=== PATIENT | female | born 1975 | race Caucasian/White ===

== ENCOUNTER 2022-10-05 03:32 | Emergency (ER) | payer BC, SELFPAY ==
[2022-10-05 03:38] VITALS: BP 145/84; PULSE 89; RESP 18; TEMP 36.7; O2SAT 99; BMI 34.3
[2022-10-05 03:57] VITALS: BP 132/74; PULSE 89; RESP 18; TEMP 36.7; O2SAT 99
--- NOTE | 2022-10-05 04:09 | ED.GENADULT ---
HPI - General Adult General Chief complaint: Skin/Abscess/Foreign Body Stated complaint: allergic reaction to a bee sting Time Seen by Provider: 10/05/22 03:37 Source: patient Mode of arrival: ambulatory Limitations: no limitations History of Present Illness HPI narrative: 47-year-old female presents the emergency department about 14 hours after bee sting while camping up in the [facility]. She tends to get a bee sting about every year and is known to be allergic. Thankfully, she is satting enough to carry Benadryl and an EpiPen with her. She has only noticed localized symptoms but admits that she started the Benadryl right away after the sting as we would have urged her to do. She has continued to take the Benadryl 2 tablets every 4-6 hours. She is noticing redness and warmth of the arm but no systemic symptoms. There is no itchy throat, no shortness of breath, no swelling of the lips or tongue. In the past, she has received prednisone for this but is experiencing some eye complications and the drill operator has urged her not to use prednisone unless absolutely medically necessary. She has driven back from the [facility] right away after packing up from camping after the sting and arrives here in our local emergency department. Is not applied any topical steroids, is not taking any nondrowsy antihistamines, H2 blockers or other similar medications. She does not have a history of asthma. She denies any other systemic complaints or other bee stings besides the right arm area. Past medical history known for bee sting, no major long-term health complications. Ocular/macular issues as described above. Related Data Home Medications Medication Instructions Recorded Confirmed No Known Home Medications 10/05/22 10/05/22 Allergies Allergy/AdvReac Type Severity Reaction Status Date / Time Sulfa (Sulfonamide Allergy Severe Swelling Verified 10/05/22 03:40 Antibiotics) of Lip/Tongue/Throat bee venom protein (honey bee) Allergy Mild Redness/Swe Verified 10/05/22 03:40 lling codeine AdvReac Mild Gastrointestinal Verified 10/05/22 03:40 Upset [facility] Medical History Cough ?R05.9 - Cough, unspecified (ICD-10) Social History Smoking Status: Never smoker Second hand tobacco smoke exposure: No How often do you have a drink containing alcohol: never How often do you have six or more drinks on one occasion: Never AUDIT-C Alcohol total score: 0 Non-prescribed substance use: denies use Exam Const: Vital Signs, click to edit/add: Vital Signs - 24 hr 10/05/22 03:38 10/05/22 03:57 Temperature 98.0 F 98.0 F Pulse Rate [Right Pulse Oximeter] 89 89 Respiratory Rate 18 18 Blood Pressure [Ri ght Upper Arm] 145/84 H 132/74 Pulse Oximetry 99 99 Oxygen Delivery Me thod Room Air Room Air Common normals: no apparent distress General appearance: cooperative, comfortable and well kempt Other: Articulate, excellent memory. HENMT: Common normals: normocephalic and head/scalp atraumatic Head and scalp: normocephalic and atraumatic Face and sinus: normal facial exam Mouth: oral and palatal mucosa normal Throat: posterior oropharynx normal Other: No swelling of lips, tongue, membranes Eye: Common normals: conjunctivae normal General eye: normal appearance of both eyes Conjunctiva: conjunctiva(e) normal Neck & C-Spine: Common normals: full ROM Resp: Common normals: normal respiratory effort, no use of accessory muscles and clear to auscultation bilaterally Effort & inspection: able to speak in complete sentences Auscultation: clear to auscultation bilaterally Cardio: Common normals: regular rate, regular rhythm, S1 normal heart sound, S2 normal heart sound and no murmurs Rate: regular rate Rhythm: regular rhythm Heart sounds: S1 normal and S2 normal Extremity: Other: Right arm with hive, confluent, measuring about 10 x 10 cm, irregular in shape. Mild swelling. Localized reaction only. Slightly warm and red. No difficulty moving shoulder or elbow which she med demonstrates easily for me. No other affected areas on skin Neuro: Speech: speech normal Motor exam: no movement abnormalities noted Psych: Common normals: thought process normal Appearance: well kempt Activity/motor behavior: appropriate eye contact Mood and affect: euthymic mood Thought process: normal thought process Insight: insight good Judgement: judgment good Skin: Narrative: Other than the affected right upper arm, no other affected areas. Course Course Hospital Course: Currently reaction is localized, not systemic. She does not require prednisone at this time. I do recommend that she has it on hand in case her symptoms worsen and have reviewed this with her. Discussed treatment with nondrowsy antihistamines, topical steroids and classic Benadryl. See plan of care outlined in discharge summary. Alarm symptoms reviewed that would warrant ED presentation. In summary, will receive topical triamcinolone here in the ED, may apply twice daily at home. Will be given famotidine and Claritin here in the ED. Instructed on twice daily Claritin [id number]-ida-allecea for 10 days, oral famotidine once daily for 5 days. In stay meds prescription for prednisone given in case of worsening which would be spread of the rash on to the chest, any signs of swelling of the lips tongue itchy throat. Discussed that she should continue on the Benadryl every 6 hours for the 1st 24 hours and then switch to as needed. Counseled on continuing to carry EpiPen and Benadryl with her, especially when out of the area. She verbalized understanding and agreement of plan of care Vital Signs Vital signs: Initial Vital Signs Temperature 98.0 F 10/05/22 03:38 Temperature Source Temporal Artery Scan 10/05/22 03:38 Pulse Rate 89 10/05/22 03:38 Respiratory Rate 18 10/05/22 03:38 Blood Pressure 145/84 H 10/05/22 03:38 Blood Pressure Mean 104 10/05/22 03:38 Blood Pressure Position Sitting 10/05/22 03:38 Pulse Oximetry 99 10/05/22 03:38 Oxygen Delivery Method Room Air 10/05/22 03:38 Vital Signs Temperature 98.0 F 10/05/22 03:38 Pulse Rate 89 10/05/22 03:38 Respiratory Rate 18 10/05/22 03:38 Blood Pressure 145/84 H 10/05/22 03:38 Pulse Oximetry 99 10/05/22 03:38 Oxygen Delivery Method Room Air 10/05/22 03:38 Temperature 98.0 F 10/05/22 03:57 Pulse Rate 89 10/05/22 03:57 Respiratory Rate 18 10/05/22 03:57 Blood Pressure 132/74 10/05/22 03:57 Pulse Oximetry 99 10/05/22 03:57 Oxygen Delivery Method Room Air 08/09/23 03:57 Discharge Plan Discharge Clinical Impression: Allergic reaction Patient Disposition: Home, Self-Care Condition: Stable Instructions: General Allergic Reaction (ED) Additional Instructions: As we discussed, your showing signs of an allergic reaction but thankfully no signs of anaphylaxis. You did an excellent job of always caring Benadryl and starting treatment immediately. I agree with you that the risk of prednisone outweighs the benefits, unfortunately there really is not an alternative that is not going to cause similar ocular complications for you. Thankfully, I do not think that we necessarily need to use the steroids right now but I would like for you to have them on hand. I have given you a prescription to fill from the vending machine in the lobby to take and have with you. Honestly, I tend to give this to everyone with allergic reactions so that they have access to this when needed. For the 1st 24 hours after an insect bite, it is important to take your Benadryl every 6 hours. You can decrease to 1 tablet at a time now and continue this through today. I recommend that you also add in nondrowsy antihistamines. I like Claritin 10 mg twice daily for the next 10 days and famotidine which is so [id number] as Pepcid in the stomach I will 20 mg once daily for the next 5 days minimum. You may then add back in the Benadryl as needed if the rash is worsening or spreading or for increased itch. As we discussed, increased heat, activity and movement of the arm will increase blood flow and also therefore worsen the rash temporarily. It is safe to use topical steroids and I have started you on some triamcinolone ointment. You may use this up to twice daily to help with itch and irritation. Keep the tube in you may reason again in the future. It is about 100 times more potent than [id number]-[id number] hydrocortisone ointment. If you notice spread of the hives on to the head and neck, swelling of the lips, throat or tongue and or sensation of itchy throat, shortness of breath or other worrisome findings, take more Benadryl and start the prednisone. If things are not markedly improved within a few minutes, come into the emergency department. Activity Level: No Restrictions Discharge Diet: Regular Prescriptions: No Action No Known Home Medications Follow Up/Referrals: Angelia Rodriguez MD [Primary Care Provider] - Stand Alone Forms: Morning Tec Info Instructions
[2022-10-05 04:15] VITALS: BP 132/74; PULSE 89; RESP 18; TEMP 36.7
[2022-10-05] MEDS: FAMOTIDINE 20 MG TABLET PO (04:15)
[2022-10-05] MEDS: TRIAMCINOLONE ACETONIDE OINTMENT 0.1 % 1 APPLIC TOPICAL (04:15)
[2022-10-05] MEDS: LORATADINE 10 MG TABLET PO (04:15)
== END 2022-10-05 04:15 | disposition home or self-care (01) ==
LOC: ED 04:20
PROVIDERS: Emergency Provider Family Medicine; PCP Family Medicine
DX: S40.862A Insect bite (nonvenomous) of left upper arm, initial encounter (principal); T63.441A Toxic effect of venom of bees, accidental (unintentional), initial encounter
CPT/HCPCS: 99283; A9270

== ENCOUNTER 2023-06-16 08:05 | Outpatient (CLI) | payer OTHER, SELFPAY ==
--- NOTE | 2023-06-16 08:15 | MR_ITS ---
[address] [address] Phone:?[phone] Fax:?[phone] Referring Physician Information: Tolu Cruz M.D. [address] [place] [id number] Phone:?[phone] Fax:?[phone] Patient:Chloé Hamilton D.O.B:?1975 Sex:?Female Phone:?[phone] [facility] MRN:?[id number] Exam Date:?06/16/2023 EXAM: MRI of the RIGHT SHOULDER, without contrast CLINICAL: Female, 48 years old, with right shoulder pain. INDICATION: Evaluate for osteoarthritis and acromioclavicular joint osteoarthritis versus other internal derangement joint etiology. PRIOR SURGERY: None reported. PLAIN FILMS: 05/08/2023 radiographic series of the right shoulder. COMPARISONS: No prior MRIs available. TECHNICAL: Using a 1.5T MR scanner and a localizing shoulder surface coil: 3.0 mm?coronal obliques: PD, T2, STIR 3.0 mm?sagittal obliques: PD, T2 3.0 mm?axials: PD, T2 SEDATION: None. CONTRAST: None. IMPRESSION: 1. Mild abnormal-appearing subacromial bursal edema/bursitis. 2. Mild narrowing of acromiohumeral distance. 3. No rotator cuff tear or mirta tendinopathy. 4. Mild glenohumeral chondral thinning/degenerative change. 5. 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 Evaluate for any associated symptoms referable to the AC joint. FINDINGS: Glenohumeral joint: Effusion/cyst: Physiologic glenohumeral joint effusion. No paralabral ganglion cyst. Articular cartilage: Humeral head: No convincing osteochondral abnormalities. Glenoid: Expected chondral thinning of the central to posterior glenoid, without subjacent marrow edema. Loose bodies: No demonstrable loose bodies. Inferior glenohumeral ligament/axillary recess: The axillary recess is normal in thickness and signal. No evidence of adhesive capsulitis or capsuloligamentous injury. Labrum: There does appear more deformity of the anterior labrum then normally expected which could perhaps represent anterior labrum tear and yet this morphology without contrast arthrography difficult to exclude the possibility of labrum tear mimicked by high origin of anterior band of inferior glenohumeral ligament anatomic variant. However there does appears some attenuation of the inferior labrum. The posterior and superior labrum appear intact. Bones: Proximal humerus: No fracture or marrow edema/pathology. No humeral Hill-Sachs or reverse Hill-Sachs lesion/impaction or contusion. Glenoid: No fracture or marrow edema/pathology. No osseous Bankart lesion. Coracoacromial arch: Acromion morphology: Type I acromion without subacromial spur/enthesophyte. No os acromiale. Acromiohumeral space: Mildly narrowed at a minimum of 4 mm. Coracohumeral space: Widely patent. Acromioclavicular joint: Joint: Ongoing reactive changes of mild towards moderate acromioclavicular joint osteoarthritis is accompanied by small subchondral cyst and marrow edema distal clavicular facet as well as small amount of joint fluid (coronal images 11-7; axial images 6-8). Ligaments: Coracoclavicular ligaments are intact. Bursae: Subacromial-subdeltoid: Mild abnormal-appearing subacromial bursal edema/bursitis (coronal STIR series 4, images 17-9). Subcoracoid: No convincing subcoracoid bursal thickening/bursitis. Rotator cuff and muscles/tendons: Supraspinatus: No tendinopathy, tear or atrophy. Infraspinatus: No tendinopathy, tear or atrophy. Teres minor: No tendinopathy, tear or atrophy. Subscapularis: No tendinopathy, tear or atrophy. Deltoid: No strain or atrophy. Biceps tendon, long head: Perhaps mild tendinosis of the intra-articular segment of the long head of biceps tendon although without convincing more margin of the, tear or displacement. Axilla: No axillary masses or abnormally enlarged lymphadenopathy. [facility] Electronically signed on 06/17/2023 3:11:00 PM by Kentrell Galicia M.D.
== END 2023-06-16 08:06 | disposition home or self-care (01) ==
LOC: MRI 08:06
PROVIDERS: PCP Family Medicine; Visit Provider Orthopaedic Surgery
DX: M25.511 Pain in right shoulder (principal); M75.51 Bursitis of right shoulder; M19.011 Primary osteoarthritis, right shoulder
CPT/HCPCS: 73221

== ENCOUNTER 2023-07-06 06:21 | Day surgery (SDC) | payer OTHER, SELFPAY ==
[2023-07-06] VITALS (19 sets, daily range): BP systolic 82–178; BP diastolic 43–110; PULSE 44–84; RESP 14–20; TEMP 36.2–36.7; O2SAT 91–100; BMI 34.5
[2023-07-06 06:50] LABS: Ur HCG Qualitative* Negative (Negative)
[2023-07-06] MEDS: ACETAMINOPHEN 500 MG TABLET 1000 MG PO (07:00)
[2023-07-06] MEDS: OXYCODONE (CR) 10 MG TAB.ER.12H PO (07:00)
[2023-07-06] MEDS: CELECOXIB 200 MG CAPSULE PO (07:00)
[2023-07-06] MEDS: LACTATED RINGERS 1000 ML 1,000 ML 100 ML IV ×2 (07:05→07:52)
[2023-07-06] MEDS: SODIUM CHLORIDE 0.9 % (FLUSH) 10 ML SYRINGE IVF (07:05)
[2023-07-06] MEDS: MIDAZOLAM HCL 1 MG/ML inj IVP (07:13)
[2023-07-06] MEDS: fentaNYL 100 MCG/2 ML inj IVP (07:13)
[2023-07-06] MEDS: SCOPOLAMINE 1 MG/3 DAY PATCH 1 PATCH TRANSDERMA (07:20)
--- NOTE | 2023-07-06 07:21 | SUR.PREOP ---
TIME?OUT:?711 PT/RN/MDA?VERIFICATION?OF?SURGICAL?SITE Right Shoulder,?PROCEDURE Nerve Block,?AND?CONSENT OBTAINED?PRIOR?TO?INVASIVE?PROCEDURE.
[2023-07-06] MEDS: CEFAZOLIN 2 GM INJ IVP (07:52)
--- NOTE | 2023-07-06 08:52 | PM.ORPRC ---
Procedure Note Date of procedure: 07/06/23 Procedure: PREOPERATIVE DIAGNOSIS: Right shoulder subacromial/subdeltoid bursitis, AC joint arthrosis POSTOPERATIVE DIAGNOSIS: Right shoulder subacromial/subdeltoid bursitis, AC joint arthrosis NAME OF OPERATION: Right shoulder arthroscopic subacromial decompression, distal clavicle excision SURGEON: Tolu Cruz MD CABLE RESPOOLER: Suad Andrews PA-C ANESTHESIA: Supraclavicular block plus general endotracheal ESTIMATED BLOOD LOSS: 5 mL COMPLICATIONS: None SPECIMENS: None DRAINS: None PREOPERATIVE ANTIBIOTICS: Ancef 2 grams INDICATIONS: The patient is a 48-year-old with a history of right shoulder pain secondary to the above diagnoses. Despite appropriate non operative management, they continue to have symptoms. Operative intervention was recommended. The risks, benefits and expected outcomes were discussed in detail. These included but were not limited to: Infection, bleeding, injury to blood vessel or nerve, venous thromboembolism. All questions were answered to their satisfaction. PROCEDURE: A supraclavicular block was placed by Anesthesia. General anesthesia was administered. The patient was placed in the high beach chair position. The right shoulder was prepped and draped in the usual sterile fashion. The glenohumeral joint was infiltrated with 20 mL of normal saline with epinephrine. The posterior portal was established, the arthroscope was introduced. The anterior portal was established, Diagnostic arthroscopy was performed with findings as follows: The biceps and biceps anchor are intact. The anterior, posterior and superior labrum have a minimal amount of age appropriate degenerative fraying. Articular surfaces on the humeral head and glenoid are normal. There are no loose bodies. The rotator cuff is intact. The arthroscope was placed in the subacromial space, the lateral portal was established. The [employer] [place] was used to dissect the acromion free. The CA ligament was recessed off the anterior acromion, the AC joint was exposed. The acromioplasty was performed with the bur in the posterior portal. The bur was then placed in the lateral portal and the lateral and anterior aspect of the acromion were resected. The undersurface of the distal clavicle was resected through the lateral portal. Finally, the bur was placed in the anterior portal and the remainder of the distal clavicle was resected for a total of 10 mm. An accessory anterolateral portal was placed. The subacromial/subdeltoid bursa was aggressively debrided. The bursal surface of the rotator cuff is intact. Arthroscopic instruments were removed. Skin was closed with a 3-0 Monocryl in a subcuticular fashion. A dry dressing and sling were applied. Sponge and needle counts were correct x2. The patient tolerated the procedure well. There were no apparent complications. They were carefully transferred to the hospital bed and taken to the postanesthesia care unit in satisfactory condition. PLAN: The patient will be discharged to home. Active range of motion of the shoulder will be allowed as tolerates. They can work on active range of motion of the elbow, wrist and fingers. They will follow up in the office next week for a wound check and an AP and transscapular Y-view of the shoulder prior to being seen.
--- NOTE | 2023-07-06 08:56 | W.ANESCHARGE ---
Anesthesia Charges Start Date/Time Anesthesia Start Date: 07/06/23 Anesthesia Start Time: 07:40 Stop Date/Time Anesthesia Stop Date: 07/06/23 Anesthesia Stop Time: 08:54
[2023-07-06] MEDS: HYDROmorphone 0.5 mg/0.5 ml inj IVP (09:23)
--- NOTE | 2023-07-06 09:47 | W.PM.NB ---
Nerve Block Nerve Block Time Seen by Provider: 07:17 Date Seen: 07/06/23 Type of block requested by surgeon for post-operative analgesia: supraclavicular Side: right Time out performed: Yes Verification of patient name: Yes Verification of date of : Yes Site marking: site marked Name of person performing procedure: Shen Continuous monitoring Was continuous monitoring of O2 sat, B/P, electronic commerce specialist, recorded every 15 minutes?: Yes Procedure Checklist: sterile prep, needles and gloves Ultrasound guided. Images saved: Yes Medications given in 5ml increments after negative aspiration: Ropivicaine %: 0.5 mL: 20 Needle gauge: 22 Decadron (mg): 10 Precedex (mcg): 25 Patient tolerated procedure well: Yes Block Charges Block Charge (with Pro Fee): Brachial Plexus Use of Ultrasound Machine for Block: Yes- US Guidance/pain block
--- NOTE | 2023-07-06 09:47 | W.ANESCHARGE ---
Anesthesia Charges Start Date/Time Anesthesia Start Date: 07/06/23 Anesthesia Start Time: 07:40 Stop Date/Time Anesthesia Stop Date: 07/06/23 Anesthesia Stop Time: 08:54
[2023-07-06] MEDS: OXYCODONE 5 MG TABLET PO (09:58)
[2023-07-06] MEDS: hydrOXYzine pamoate 25 MG CAPSULE PO (10:02)
== END 2023-07-06 11:25 | disposition home or self-care (01) ==
LOC: OR 06:23
PROVIDERS: Anesthesiology; PCP Family Medicine; Visit Provider Orthopaedic Surgery
PROC: (CPT 29805; principal; 2023-07-06 07:30)
DX: M75.51 Bursitis of right shoulder (principal); M19.011 Primary osteoarthritis, right shoulder; G89.18 Other acute postprocedural pain
CPT/HCPCS: 29826; 29824; 01630; 64415; 76942; 81025; A9270; J0330; J0690; J1100; J1170; J1630; J2250; J2405; J2704; J2710; J2795; J3010; J7120

== ENCOUNTER 2023-08-22 08:00 | Outpatient (RCR) | payer OTHER, SELFPAY | END 2023-12-20 23:59 | disposition home or self-care (01) | PROVIDERS: PCP Family Medicine; Visit Provider Physician Assistant | DX: Z98.890 Other specified postprocedural states (principal); Z74.09 Other reduced mobility; R53.1 Weakness; Z51.89 Encounter for other specified aftercare | CPT/HCPCS: 97110; 97140; 97162 ==

== ENCOUNTER 2024-07-14 23:02 | Emergency (ER) | payer OTHER, SELFPAY ==
[2024-07-14 23:07] VITALS: BP 154/102; PULSE 80; RESP 16; TEMP 36.6; O2SAT 98; BMI 35.6
--- NOTE | 2024-07-14 23:17 | ED_ITS ---
HPI - General Adult General Date Seen: 07/14/24 <Pierre Arevalo MD - Last Filed: 07/16/24 07:55> Chief complaint: Abdominal Pain <Pierre Arevalo MD - Last Filed: 07/16/24 07:55> Stated complaint: diverticulitis flare up <Pierre Arevalo MD - Last Filed: 07/16/24 07:55> Time Seen by Provider: 07/14/24 23:17 <Pierre Arevalo MD - Last Filed: 07/16/24 07:55> History of Present Illness HPI narrative: 49-year-old female with a history of AC joint arthritis, shoulder bursitis who presents to the ER tonight for evaluation of abdominal pain in her mid lower abdomen. Also nausea. No vomiting. Symptoms started 2 days ago on Monday. Pain has been located mostly in her lower abdomen in the central region and left lower quadrant. Initially the pain was coming and going in sharp waves and she noted that it seemed to be related to bad flares of pain before she would have bowel movements. She had a couple of normal bowel movements yesterday and not really having any diarrhea or bloody or mucousy stool. Today the pain is been a little bit more low-grade and more persistent throughout the day. She also had some chills and felt cold and shivery this afternoon but no objective fever. She has been nauseous this evening but not vomiting. She felt quite nauseous at home now she is here in the ER the nausea is mild. Urination has been normal. She has had previous oophorectomies. She recalls that she had a bout of diverticulitis diagnosed on labs and CT 5 years ago in 2004. She did not require surgery for that bout but she did have a fairly prolonged illness lasting several weeks with pain and nausea. She suspects that she has diverticulitis again based on the similarity of her current symptoms to that episode. After that bout of diverticulitis she did have bilateral oophorectomies because of ovarian masses that turned out not to be malignant. <Pierre Arevalo MD - Last Filed: 07/16/24 07:55> Related Data Home medications: Previous Rx's ?Medication ?Instructions ?Recorded epinephrine 0.3 mg/0.3 mL 0.3 ml IM ONCE #2 ea 4 injection, auto-injector <Pierre Arevalo MD - Last Filed: 07/16/24 07:55> Allergies/adverse reactions: Allergies Allergy/AdvReac Type Severity Reaction Status Date / Time Sulfa (Sulfonamide Allergy Severe Swelling Verified 07/14/24 23:06 Antibiotics) of Lip/Tongue/Throat bee venom protein (honey bee) Allergy Mild Redness/Swe Verified 07/14/24 23:06 lling codeine AdvReac Mild Gastrointestinal Verified 07/14/24 23:06 Upset <Pierre Arevalo MD - Last Filed: 07/16/24 07:55> [facility] Medical History: Medical History (Updated 07/15/24 @ 00:26 by Toby Hutchinson, ) Teratoma of right ovary ?D27.0 - Benign neoplasm of right ovary (ICD-10) Obesity ?E66.9 - Obesity, unspecified (ICD-10) Nausea ?R11.0 - Nausea (ICD-10) Mild traumatic brain injury ?S06.9XAA - Unspecified intracranial injury with loss of consciousness status unknown, initial encounter (ICD-10) Class 1 obesity ?E66.9 - Obesity, unspecified (ICD-10) Allergic reaction to insect bite ?Z91.038 - Other insect allergy status (ICD-10) Diverticulitis ?K57.92 - Diverticulitis of intestine, part unspecified, without perforation or abscess without bleeding (ICD-10) Left ACL tear (~1994) ?S83.512A - Sprain of anterior cruciate ligament of left knee, initial encounter (ICD-10) Cough ?R05.9 - Cough, unspecified (ICD-10) <Pierre Arevalo MD - Last Filed: 07/16/24 07:55> Surgical History: Surgical History (Reviewed 08/21/23 @ 08:55 by Shanice Joshi ~ [facility], [facility]) History of arthroscopy of right shoulder (07/06/23) ?Z98.890 - Other specified postprocedural states (ICD-10) Hx of left knee surgery (1993) ?Z98.890 - Other specified postprocedural states (ICD-10) H/O unilateral oophorectomy (2019) ?Z90.721 - Acquired absence of ovaries, unilateral (ICD-10) Hx of LASIK (08/01/04) ?Z98.890 - Other specified postprocedural states (ICD-10) <Pierre Arevalo MD - Last Filed: 07/16/24 07:55> Social History: Social History (Reviewed 08/21/23 @ 08:55 by Shanice Joshi ~ [facility], [facility]) Narrative: exercises daily- walks 4M, weigth lifting , stay at home mom, 2 kids nonsmoker rarely consumes alcohol What is your current living situation?: I presently have a place to live Problems where you live: no known problems In the past 12 months, utilities in danger of being shut off: no In past 12 months, lack of transportation kept you from medical appts, meetings, work, or getting things needed for daily living: no In the past 12 mos, have been you worried that your food would run out before you had money to buy more?: never true In the past 12 mos, the food you bought just didn't last and you didn't have money to buy more?: never true Smoking Status: Never smoker Second hand tobacco smoke exposure: No How often do you have a drink containing alcohol: never How often do you have six or more drinks on one occasion: Never AUDIT-C Alcohol total score: 0 Non-prescribed substance use: denies use Caffeine: No How often does anyone, including family, friends and others, physically hurt you : never How often does anyone, including family, friends and others, insult or talk down to you: never How often does anyone, including family, friends and others, threaten you with harm: never How often does anyone, including family, friends and others, scream or curse at you: never Are you using contraception or practicing any form of control: No <Pierre Arevalo MD - Last Filed: 07/16/24 07:55> Exam Narrative: Exam Narrative: Constitutional: Appears well-developed and well-nourished. Alert. Conversant. Non toxic. HENT: Head: Atraumatic. Nose: Nose normal. Mouth/Throat: Oral mucosa is clear and moist. no trismus. Pharynx normal. Eyes: Conjunctivae normal. EOM normal. Pupils equal, round, and reactive to light. No scleral icterus. Neck: Normal range of motion. Neck supple. No tracheal deviation present. Cardiovascular: Normal rate, regular rhythm. No gallop. No friction rub. No murmur heard. Symmetric radial artery pulses Pulmonary/Chest: Effort normal. No stridor. No respiratory distress. No wheezes. No rales. No rhonchi . No tenderness. Abdominal: Soft. Bowel sounds normal. No distension. No mass. Left lower quadrant and left mid abdominal tenderness. No rebound. No guarding. No CVA tenderness. Musculoskeletal: RUE: Normal range of motion. No tenderness. No deformity LUE: Normal range of motion. No tenderness. No deformity RLE: Normal range of motion. No edema. No tenderness. No deformity LLE: Normal range of motion. No edema. No tenderness. No deformity Neurological: Alert and oriented to person, place, and time. Normal strength. CN II-VII intact. No sensory deficit. GCS eye subscore is 4. GCS verbal subscore is 5. GCS motor subscore is 6. Normal coordination Skin: Skin is warm and dry. No rash noted. No pallor. Normal capillary refill. Psychiatric: Normal mood. Normal affect. <Pierre Arevalo MD - Last Filed: 07/16/24 07:55> Const: Vital Signs, click to edit/add: Vital Signs - 24 hr 07/14/24 23:07 Temperature 97.8 F Pulse Rate [Pulse Oximeter] 80 Respiratory Rate 16 Blood Pressure [Ri ght Upper Arm] 154/102 H Pulse Oximetry 98 Oxygen Delivery Me thod Room Air <Pierre Arevalo MD - Last Filed: 07/16/24 07:55> Vital Signs, click to edit/add: Vital Signs - 24 hr 07/14/24 23:07 Temperature 97.8 F Pulse Rate [Pulse Oximeter] 80 Respiratory Rate 16 Blood Pressure [Ri ght Upper Arm] 154/102 H Pulse Oximetry 98 Oxygen Delivery Me thod Room Air <Toby Hutchinson DO - Last Filed: 07/15/24 00:26> Course Vital Signs Vital signs: Initial Vital Signs Temperature 97.8 F 07/14/24 23:07 Temperature Source Temporal Artery Scan 07/14/24 23:07 Pulse Rate 80 07/14/24 23:07 Respiratory Rate 16 07/14/24 23:07 Blood Pressure 154/102 H 07/14/24 23:07 Blood Pressure Mean 119 H 07/14/24 23:07 Pulse Oximetry 98 07/14/24 23:07 Oxygen Delivery Method Room Air 07/14/24 23:07 Vital Signs Temperature 97.8 F 07/14/24 23:07 Pulse Rate 80 07/14/24 23:07 Respiratory Rate 16 07/14/24 23:07 Blood Pressure 154/102 H 07/14/24 23:07 Pulse Oximetry 98 07/14/24 23:07 Oxygen Delivery Method Room Air 07/14/24 23:07 Temperature 97.8 F 07/14/24 23:07 Pulse Rate 80 07/14/24 23:07 Respiratory Rate 16 07/14/24 23:07 Blood Pressure 154/102 H 07/14/24 23:07 Pulse Oximetry 98 07/14/24 23:07 Oxygen Delivery Method Room Air 07/14/24 23:07 <Pierre Arevalo MD - Last Filed: 07/16/24 07:55> Initial Vital Signs Temperature 97.8 F 07/14/24 23:07 Temperature Source Temporal Artery Scan 07/14/24 23:07 Pulse Rate 80 07/14/24 23:07 Respiratory Rate 16 07/14/24 23:07 Blood Pressure 154/102 H 07/14/24 23:07 Blood Pressure Mean 119 H 07/14/24 23:07 Pulse Oximetry 98 07/14/24 23:07 Oxygen Delivery Method Room Air 07/14/24 23:07 Vital Signs Temperature 97.8 F 07/14/24 23:07 Pulse Rate 80 07/14/24 23:07 Respiratory Rate 16 07/14/24 23:07 Blood Pressure 154/102 H 07/14/24 23:07 Pulse Oximetry 98 07/14/24 23:07 Oxygen Delivery Method Room Air 07/14/24 23:07 Temperature 97.8 F 07/14/24 23:07 Pulse Rate 80 07/14/24 23:07 Respiratory Rate 16 07/14/24 23:07 Blood Pressure 154/102 H 07/14/24 23:07 Pulse Oximetry 98 07/14/24 23:07 Oxygen Delivery Method Room Air 07/14/24 23:07 <Toby Hutchinson DO - Last Filed: 07/15/24 00:26> Medical Decision Making MDM Narrative Medical decision making narrative: This is a very pleasant 49-year-old female with a past history of diverticulitis 5 years ago and also bilateral oophorectomy done about 5 years ago. She presents to the ER today with his 2 day history of left-sided abdominal pain getting worse over time and also developing nausea and chills today. Differential here includes recurrent diverticulitis as well as complication of diverticulitis such as perforation, abscess. Differential would also include other causes of left-sided of all of pain such as UTI, pyelonephritis, colitis, bowel obstruction from adhesions from previous surgeries. Less likely would be ischemia, appendicitis. She is not having any upper abdominal pain to raise concern for cholecystitis or pancreatitis. She is hemodynamically stable and neurologically intact upon presentation. She politely declines offered meds for pain and nausea. I have ordered labs i ncluding blood tests, urinalysis, as well as imaging workup with CT abdomen pelvis with contrast. Discussed with my oncoming partner, Dr. Hutchinson at midnight on 07/14. He will follow up on all the outstanding test results. I anticipate that the CT scan will likely show acute uncomplicated diverticulitis. If so, I would opt to treat this patient with a course of oral antibiotics. Although she is young and healthy and current recommendations would argue against treatment antibiotics, given the patient's very complicated course during her 1st bout of diverticulitis, I think early antibiotics may be beneficial for her this time. Clinical impression at the time of this dictation 1. Abdominal pain 2. Nausea <Pierre Arevalo MD - Last Filed: 07/16/24 07:55> Patient was signed out to me pending CT scan results. Returned showing some mild diverticulitis. re-evaluation the patient shows no concerning abnormalities. She is feeling well at this time. Based on report previous provider I will provide the patient with Augmentin prescribed be instymeds. She is agreeable to this plan. She will be discharged. <Toby Hutchinson DO - Last Filed: 07/15/24 00:26> Lab Data Labs: Lab Results 07/14/24 07/14/24 Range/Units 23:41 23:45 WBC 6.27 (4.50-11.00) K/uL RBC 4.58 (4.00-5.20) m/uL Hgb 13.2 (12.0-16.0) gm/dL Hct 40.0 (33.0-51.0) % MCV 87 (80-100) fL MCH 29 (26-34) pg MCHC 33 (32-36) gm/dL RDW Coeff of [place] 12.5 (11.5-15.5) % Plt Count 224 (140-440) K/uL Neut % (Auto) 58.1 (42.0-72.0) % Lymph % (Auto) 29.8 (20-44) % [place] % (Auto) 9.4 (0.0-11.0) % Eos % (Auto) 1.3 (0.0-7.0) % Baso % (Auto) 0.3 (0.0-3.0) % Neut # (Auto) 3.64 (1.7-7.0) K/uL Lymph # (Auto) 1.87 (0.90-2.90) K/uL [place] # (Auto) 0.60 (0.00-0.90) K/UL Eos # (Auto) 0.08 (0.00-0.50) K/uL Baso # (Auto) 0.02 (0.00-0.30) K/uL Abs Immat Gran (auto) 0.07 (0.00-0.30) K/uL Imm/Tot Granulo (auto) 1.1 % Sodium 136 (135-149) mmol/L Potassium 3.7 (3.6-5.1) mmol/L Chloride 104 (96-114) mmol/L Carbon Dioxide 24 (20-32) mmol/L Anion Gap 8 (7-15) mEq/L BUN 12 (5-24) mg/dL Creatinine 0.8 (0.5-1.5) mg/dL Estimated Creat Clear 78.23 Estimated GFR 91 ml/min Glucose 94 (60-115) mg/dL Lactate 1.8 (0.5-1.9) mmol/L Calcium 8.9 (8.4-10.6) mg/dL Urine Color Yellow (Yellow) Urine Appearance Clear (Clear) Urine pH 5.0 (5.0-8.5) Ur Specific [place] >= 1.030 (1.000-1.030) Urine Protein 1+ A (Negative) Urine Glucose (UA) Negative (Negative) Urine Ketones 1+ A (Negative) Urine Blood 3+ A (Negative) Urine Nitrite Negative (Negative) Urine Bilirubin 1+ A (Negative) Urine Urobilinogen 0.2 (0.2-1.0) Ur Leukocyte Esterase Negative (Negative) Urine RBC 5-10 A (0-2) Urine WBC 0-2 (0-5) Ur Squamous Epith Cells None (None-Few) Urine Bacteria None (None) <Pierre Arevalo MD - Last Filed: 07/16/24 07:55> Lab Results 07/14/24 07/14/24 Range/Units 23:41 23:45 WBC 6.27 (4.50-11.00) K/uL RBC 4.58 (4.00-5.20) m/uL Hgb 13.2 (12.0-16.0) gm/dL Hct 40.0 (33.0-51.0) % MCV 87 (80-100) fL MCH 29 (26-34) pg MCHC 33 (32-36) gm/dL RDW Coeff of [place] 12.5 (11.5-15.5) % Plt Count 224 (140-440) K/uL Neut % (Auto) 58.1 (42.0-72.0) % Lymph % (Auto) 29.8 (20-44) % [place] % (Auto) 9.4 (0.0-11.0) % Eos % (Auto) 1.3 (0.0-7.0) % Baso % (Auto) 0.3 (0.0-3.0) % Neut # (Auto) 3.64 (1.7-7.0) K/uL Lymph # (Auto) 1.87 (0.90-2.90) K/uL [place] # (Auto) 0.60 (0.00-0.90) K/UL Eos # (Auto) 0.08 (0.00-0.50) K/uL Baso # (Auto) 0.02 (0.00-0.30) K/uL Abs Immat Gran (auto) 0.07 (0.00-0.30) K/uL Imm/Tot Granulo (auto) 1.1 % Sodium 136 (135-149) mmol/L Potassium 3.7 (3.6-5.1) mmol/L Chloride 104 (96-114) mmol/L Carbon Dioxide 24 (20-32) mmol/L Anion Gap 8 (7-15) mEq/L BUN 12 (5-24) mg/dL Creatinine 0.8 (0.5-1.5) mg/dL Estimated Creat Clear 78.23 Estimated GFR 91 ml/min Glucose 94 (60-115) mg/dL Lactate 1.8 (0.5-1.9) mmol/L Calcium 8.9 (8.4-10.6) mg/dL Urine Color Yellow (Yellow) Urine Appearance Clear (Clear) Urine pH 5.0 (5.0-8.5) Ur Specific [place] >= 1.030 (1.000-1.030) Urine Protein 1+ A (Negative) Urine Glucose (UA) Negative (Negative) Urine Ketones 1+ A (Negative) Urine Blood 3+ A (Negative) Urine Nitrite Negative (Negative) Urine Bilirubin 1+ A (Negative) Urine Urobilinogen 0.2 (0.2-1.0) Ur Leukocyte Esterase Negative (Negative) Urine RBC 5-10 A (0-2) Urine WBC 0-2 (0-5) Ur Squamous Epith Cells None (None-Few) Urine Bacteria None (None) <Toby Hutchinson DO - Last Filed: 07/15/24 00:26> Imaging Data CT scan abdomen pelvis: Attestation: I have reviewed the pertinent imaging results. <Toby Hutchinson DO - Last Filed: 07/15/24 00:26> Radiologist's impression: 1. Severe diverticulosis of the sigmoid colon is present with faint inflammatory changes in the fat along the inferior margin of the colon on coronal image 51. Findings may be due to mild diverticulitis. Dictated by Torsten Rodriguez MD @ 07/15/2024 12:19:34 AM Please note that all CT scans at this facility use dose modulation, iterative reconstruction, and/or weight-based dosing when appropriate to reduce radiation dose to as low as reasonably achievable. Dictated by: Torsten Rodriguez MD @ 07/15/2024 00:19:37 <Toby Hutchinson DO - Last Filed: 07/15/24 00:26> Discharge Plan Discharge Clinical Impression: Diverticulitis <Pierre Arevalo MD - Last Filed: 07/16/24 07:55> Patient Disposition: Home, Self-Care <Pierre Arevalo MD - Last Filed: 07/16/24 07:55> Condition: Stable <Pierre Arevalo MD - Last Filed: 07/16/24 07:55> Instructions: Diverticulitis Diet (ED) <Pierre Arevalo MD - Last Filed: 07/16/24 07:55> Additional Instructions: take Tylenol and ibuprofen as needed for pain. Use the antibiotics as directed. Return to the emergency department for new or worsening symptoms. <Pierre Arevalo MD - Last Filed: 07/16/24 07:55> Activity Level: No Restrictions <Pierre Arevalo MD - Last Filed: 07/16/24 07:55> No Restrictions <Toby Hutchinson DO - Last Filed: 07/15/24 00:26> Discharge Diet: Regular <Pierre Arevalo MD - Last Filed: 07/16/24 07:55> Regular <Toby Hutchinson DO - Last Filed: 07/15/24 00:26> Prescriptions: No Action epinephrine 0.3 mg/0.3 mL auto-injector 0.3 ml IM ONCE Qty: 2 0RF Rx Instructions: as a single dose; may repeat once <Pierre Arevalo MD - Last Filed: 07/16/24 07:55> Follow Up/Referrals: Angelia Rodriguez MD [Primary Care Provider] <Pierre Arevalo MD - Last Filed: 07/16/24 07:55> Stand Alone Forms: MyHealth Info Instructions <Pierre Arevalo MD - Last Filed: 07/16/24 07:55>
--- NOTE | 2024-07-14 23:33 | CRLHL7_ITS ---
For Patients: As a result of the Cures Act, medical imaging exams and procedure reports are released immediately into your electronic medical record. You may view this report before your referring provider. If you have questions, please contact your health care provider. INDICATION: Left lower quadrant abdominal pain TECHNIQUE: CT Abdomen and pelvis with i.v. contrast. Coronal and sagittal reformats were obtained. CONTRAST: 105 mL Isovue 370 COMPARISON: None FINDINGS: Lower chest: Unremarkable. Liver: Unremarkable. Spleen: Unremarkable. Pancreas: Unremarkable. Gallbladder: There are 2 calcified gallstones present measuring up to 2 cm. Kidney: There is a cyst in the upper pole of the right kidney that measures 4 cm. Adrenal: Unremarkable. Bowel: Severe diverticulosis of the sigmoid colon is present with faint inflammatory changes in the fat along the inferior margin of the colon on coronal image 51. The appendix is normal in appearance and size. Vascular: Unremarkable. Lymph: Unremarkable. Peritoneum: Unremarkable. No pneumoperitoneum is seen. No significant ascites is noted. Pelvis: Unremarkable. Soft tissue: Unremarkable. Bone: Unremarkable for age. IMPRESSION: 1. Severe diverticulosis of the sigmoid colon is present with faint inflammatory changes in the fat along the inferior margin of the colon on coronal image 51. Findings may be due to mild diverticulitis. Dictated by Torsten Rodriguez MD @ 07/15/2024 12:19:34 AM Please note that all CT scans at this facility use dose modulation, iterative reconstruction, and/or weight-based dosing when appropriate to reduce radiation dose to as low as reasonably achievable. Dictated by: Torsten Rodriguez MD @ 07/15/2024 00:19:37 (Electronically Signed)
[2024-07-14 23:44] LABS: Basophils Absolute Auto 0.02 K/uL (0.00-0.30); Basophils Percent Auto 0.3 % (0.0-3.0); Eosinophils Absolute Auto 0.08 K/uL (0.00-0.50); Eosinophils Percent Auto 1.3 % (0.0-7.0); Hemoglobin* 13.2 gm/dL (12.0-16.0); Immature Granulocytes Abs Auto 0.07 K/uL (0.00-0.30); Immature Granulocytes Pct Auto 1.1 %; Lymphocytes Absolute Auto 1.87 K/uL (0.90-2.90); Lymphocytes Percent Auto 29.8 % (20-44); Mean Corpuscular HGB Conc 33 gm/dL (32-36); Mean Corpuscular Hemoglobin 29 pg (26-34); Mean Corpuscular Volume 87 fL (80-100); Monocytes Percent Auto 9.4 % (0.0-11.0); Neutrophils Absolute Auto 3.64 K/uL (1.7-7.0); Neutrophils Percent Auto 58.1 % (42.0-72.0); Platelet Count* 224 K/uL (140-440); RDW Coefficient of Variation % 12.5 % (11.5-15.5); Red Blood Count 4.58 m/uL (4.00-5.20); White Blood Count* 6.27 K/uL (4.50-11.00)
[2024-07-14 23:45] LABS: Lactate* 1.8 mmol/L (0.5-1.9)
[2024-07-14 23:47] LABS: Appearance Urine Clear (Clear); Bilirubin Urine 1+ (Negative); Blood Urine 3+ (Negative); Color Urine Yellow (Yellow); Glucose Urine Negative (Negative); Ketones Urine 1+ (Negative); Leukocyte Esterase Urine Negative (Negative); Nitrite Urine Negative (Negative); Protein Urine 1+ (Negative); Specific Gravity Urine >= 1.030 (1.000-1.030); Urobilinogen Urine 0.2 (0.2-1.0)
[2024-07-14 23:47] LABS: Slide Review Reflex No
[2024-07-14 23:48] LABS: WBC Urine 0-2 (0-5)
[2024-07-14 23:51] LABS: Chloride* 104 mmol/L (96-114); Potassium* 3.7 mmol/L (3.6-5.1); Sodium* 136 mmol/L (135-149)
[2024-07-14 23:54] LABS: Blood Urea Nitrogen* 12 mg/dL (5-24); Creatinine* 0.8 mg/dL (0.5-1.5); Est. Creatinine Clearance* 78.23; Estimated Glomerular Filt Rate 91 ml/min
[2024-07-14 23:55] LABS: Anion Gap 8 mEq/L (7-15); Calcium* 8.9 mg/dL (8.4-10.6); Carbon Dioxide* 24 mmol/L (20-32); Glucose* 94 mg/dL (60-115)
== END 2024-07-15 00:35 | disposition home or self-care (01) ==
PROVIDERS: Emergency Provider Emergency Medicine; PCP Family Medicine
DX: K57.92 Diverticulitis of intestine, part unspecified, without perforation or abscess without bleeding (principal)
CPT/HCPCS: 36415; 74177; 80048; 81001; 83605; 85025; 99284; 99285; Q9967

== ENCOUNTER 2024-08-26 07:36 | Outpatient (CLI) | payer OTHER, SELFPAY | END 2024-08-26 07:37 | disposition home or self-care (01) | LOC: NFLDREF 08-27 14:20 | PROVIDERS: PCP Family Medicine; Referring Provider Family Medicine; Visit Provider Family Medicine | DX: E66.9 Obesity, unspecified (principal); R53.83 Other fatigue; R03.0 Elevated blood-pressure reading, without diagnosis of hypertension; Z13.6 Encounter for screening for cardiovascular disorders | CPT/HCPCS: 80053; 80061; 84443 ==

== ENCOUNTER 2024-09-11 10:36 | Outpatient (CLI) | payer OTHER, SELFPAY ==
[2024-09-12 19:28] LABS: HPV Source Cervical/Vag
[2024-09-25 14:39] LABS: Pap Test Reviewed by Path Done
== END 2024-09-11 10:37 | disposition home or self-care (01) ==
PROVIDERS: PCP Family Medicine; Visit Provider Family Medicine
DX: Z12.4 Encounter for screening for malignant neoplasm of cervix (principal); Z11.51 Encounter for screening for human papillomavirus (HPV)
CPT/HCPCS: 87624; 87625; 88141; 88142

== ENCOUNTER 2024-09-18 07:35 | Outpatient (CLI) | payer OTHER, SELFPAY ==
--- NOTE | 2024-09-18 07:45 | CRLHL7_ITS ---
For Patients: As a result of the Century Cures Act, medical imaging exams and procedure reports are released immediately into your electronic medical record. You may view this report before your referring provider. If you have questions, please contact your health care provider. INDICATION: BILATERAL SCREENING MAMMOGRAM, ASYMPTOMATIC 49 Y/O FEMALE COMPARISON: 09/12/2019 TECHNIQUE: Digital mammogram in CC and MLO projections including computer-aided detection (CAD) and tomosynthesis. BREAST COMPOSITION: There are scattered areas of fibroglandular density. FINDINGS: No suspicious findings. ASSESSMENT: BI-RADS 1 Negative RECOMMENDATION: Annual screening mammogram. A lay language report of this examination will be provided to the patient. Dictated by: Radha Matos MD @ 09/19/2024 11:42:37 (Electronically Signed)
== END 2024-09-18 07:36 | disposition home or self-care (01) ==
PROVIDERS: PCP Family Medicine; Visit Provider Family Medicine
DX: Z12.31 Encounter for screening mammogram for malignant neoplasm of breast (principal)
CPT/HCPCS: 77063; 77067

== ENCOUNTER 2024-09-27 07:06 | Outpatient (CLI) | payer OTHER, SELFPAY ==
--- NOTE | 2024-09-27 07:15 | CRLHL7_ITS ---
For Patients: As a result of the Century Cures Act, medical imaging exams and procedure reports are released immediately into your electronic medical record. You may view this report before your referring provider. If you have questions, please contact your health care provider. INDICATION: abnormal cytological findings COMPARISON: 09/12/2019 TECHNIQUE: 2D wills-scale and color Doppler images were acquired of the pelvis using a transabdominal and transvaginal approach. Transvaginal imaging performed to better visualize the endometrial stripe and ovaries. FINDINGS: Sonographic images demonstrate a normal size and smooth outer contour of the uterus. Uterus measures 9.2 cm in length by 5.6 cm in AP diameter by 5.1 cm in transverse dimension. The myometrium has a normal uniform echotexture. The endometrium measures 13 millimeters. No endometrial fluid. The endometrial morphology is slightly heterogeneous. The right ovary is not visualized due to overlying bowel gas. The left ovary measures 4.1 x 2.5 x 2.4 cm. The left ovary demonstrates normal arterial and venous blood flow on color Doppler analysis. There are no suspicious fluid collections within the cul-de-sac. IMPRESSION: Endometrium measures 1.3 cm. No uterine fibroid. Dictated by Regan Ring MD @ 09/29/2024 9:15:18 PM (Electronically Signed)
== END 2024-09-27 07:07 | disposition home or self-care (01) ==
LOC: US 07:07
PROVIDERS: PCP Family Medicine; Visit Provider Family Medicine
DX: R87.619 Unspecified abnormal cytological findings in specimens from cervix uteri (principal); R93.89 Abnormal findings on diagnostic imaging of other specified body structures
CPT/HCPCS: 76830; 76856

== ENCOUNTER 2024-10-17 08:44 | Outpatient (CLI) | payer OTHER, SELFPAY ==
--- NOTE | 2024-10-17 10:05 | W.ANESCHARGE ---
Anesthesia Charges Start Date/Time Anesthesia Start Date: 10/17/24 Anesthesia Start Time: 09:40 Stop Date/Time Anesthesia Stop Date: 10/17/24 Anesthesia Stop Time: 10:04
--- NOTE | 2024-10-17 10:16 | P.ANES_ITS ---
Anesthesia Charges Start Date/Time Anesthesia Start Date: 10/17/24 Anesthesia Start Time: 09:40 Stop Date/Time Anesthesia Stop Date: 10/17/24 Anesthesia Stop Time: 10:04 Coding CPT Codes CPT Codes: JENNIFER LWR INTST SCR COLSC - 14330 ([id number]) QK - BARREL DRUM CUTTER 2-4 CNCRNT JENNIFER PROC, QX - CERTIFIED HEALTH EDUCATION SPECIALIST SVC W/ MD MED DIRECTION, P2 - PATIENT W/MILD SYST DISEASE
--- NOTE | 2024-10-17 10:16 | W.ANESCHARGE ---
Anesthesia Charges Start Date/Time Anesthesia Start Date: 10/17/24 Anesthesia Start Time: 09:40 Stop Date/Time Anesthesia Stop Date: 10/17/24 Anesthesia Stop Time: 10:04 Coding CPT Codes CPT Codes: JENNIFER LWR INTST SCR COLSC - 06759 ([id number]) QK - AIR SURVEILLANCE OPERATOR 2-4 CNCRNT JENNIFER PROC, QX - GAMING COMMISSIONER SVC W/ MD MED DIRECTION, P2 - PATIENT W/MILD SYST DISEASE
== END 2024-10-17 08:45 | disposition home or self-care (01) ==
LOC: OP CLINIC 08:44
PROVIDERS: PCP Family Medicine; Visit Provider Surgery
DX: K57.32 Diverticulitis of large intestine without perforation or abscess without bleeding (principal); K57.30 Diverticulosis of large intestine without perforation or abscess without bleeding; K64.4 Residual hemorrhoidal skin tags
CPT/HCPCS: 00811; 00812; 45378; J2405; J2704